=== PATIENT | female | born 1940 | race Caucasian/White ===

== ENCOUNTER 2018-08-11 10:11 | Day surgery (SDC) | payer MEDICARE, OTHER ==
[~2018-08-11 10:11] MED LIST: BRIMONIDINE 0.2% OPHTH DROPS 5 ML ONE; BSS/LIDOCAINE/EPINEPHRINE 1 ML SYRINGE ONE; CYCLOPENTOLATE 1% OPHTH DROPS 2 ML ONE; KETOROLAC 0.45% OPHTH DROPS ONE; PHENYLEPHRINE 2.5% OPHTH 2 ML DROPS ONE; PROPARACAINE 0.5% OPHTH DROPS 15 ML ONE; TIMOLOL 0.5% OPHTH DROPS ONE; TRIAMCIN/MOXIFLOX OPHTHALMIC 0.6 ML VIAL IO ONE; VANCOMYCIN OPHTHALMI 8MG/0.8ML 8 MG/0.8 ML SYRINGE IO ONE
[2018-08-11] MEDS ORDERED: CYCLOPENTOLATE 1% OPHTH DROPS 2 ML RIGHTEYE ONE (10:50)
[2018-08-11] MEDS ORDERED: KETOROLAC 0.45% OPHTH DROPS RIGHTEYE ONE (10:50)
[2018-08-11] MEDS ORDERED: PROPARACAINE 0.5% OPHTH DROPS 15 ML RIGHTEYE ONE (10:50)
[2018-08-11] MEDS ORDERED: PHENYLEPHRINE 2.5% OPHTH 2 ML DROPS RIGHTEYE ONE (10:50)
[2018-08-11] MEDS ORDERED: LACTATED RINGERS 500 ML IV ONE (10:55)
--- NOTE | 2018-08-11 11:24 | ANESTHESIA ---
Pre-Anesthesia VS, & Labs - Diagnosis Right senile combined cataract - Procedure Right phaco with IOL implant Vital Signs: Temp Pulse Resp BP Pulse Ox 37 C 68 16 127/75 100 08/11/18 10:38 08/11/18 10:38 08/11/18 10:38 08/11/18 10:38 08/11/18 10:38 Height 5 ft 3 in Weight (kg) 75 kg Body Mass Index 26.4 - NPO Other (Water at 0800) - Is Patient ?: No Home Medications and Allergies Home Medications: Ambulatory Orders Atorvastatin [Lipitor] 10 mg PO DAILY 08/10/18 Omeprazole [PriLOSEC] 20 mg PO DAILY 10/19/12 Atorvastatin [Lipitor] 10 mg PO DAILY 08/10/18 Allergies/Adverse Reactions: Allergies Allergy/AdvReac Type Severity Reaction Status Date / Time No Known Drug Allergies Allergy Unverified 09/25/12 10:20 Anes History & Medical History - Anesthetic History Anesthesia Complications: reports: No previous complications Family history of Anesthesia Complications: Denies Family history of Malignant Hyperthermia: Denies - Medical History Cardiovascular: reports: None, High cholesterol Pulmonary: reports: None Gastrointestinal: reports: GI bleed Urinary: reports: None Neuro: reports: None Musculoskeletal: reports: Osteoarthritis, Chronic back pain Endocrine/Autoimmune: reports: None Blood Disorders: reports: None Skin: reports: None Smoking Status: Never smoker Psychosocial: reports: No issues indicated - Surgical History General: EGD Eyes Ears Nose Throat (EENT): Tonsil/Adenoidectomy Exam General: Alert, Oriented x3, Cooperative Dental: WNL Mouth Opening: Greater than 4 Fingerbreadths Neck Mobility: Normal Mallampati classification: II Respiratory: Lungs clear Cardiovascular: Regular rate Plan Anesthesia Type: MAC Consent for Procedure(s) Verified and Reviewed: Yes Code Status: Attempt Resuscitation ASA classification: 2-Mild systemic disease Is this case an emergency?: No
[2018-08-11] MEDS ORDERED: VANCOMYCIN OPHTHALMI 8MG/0.8ML 8 MG/0.8 ML SYRINGE IO ONE (11:46)
[2018-08-11] MEDS ORDERED: BRIMONIDINE 0.2% OPHTH DROPS 5 ML OPTH ONE (11:47)
[2018-08-11] MEDS ORDERED: TRIAMCIN/MOXIFLOX OPHTHALMIC 0.6 ML VIAL IO ONE (11:47)
[2018-08-11] MEDS ORDERED: BSS/LIDOCAINE/EPINEPHRINE 1 ML SYRINGE IO ONE (11:48)
[2018-08-11] MEDS ORDERED: EPINEPHrine 1 MG/ML AMP IVP ONE (11:48)
[2018-08-11] MEDS ORDERED: TIMOLOL 0.5% OPHTH DROPS OPTH ONE (11:48)
[2018-08-11] MEDS ORDERED: CHONDR SULF/HYALURONATE SYRINGE IO ONE (11:48)
[2018-08-11] MEDS ORDERED: MIDAZOLAM 2 MG/2 ML VIAL IVP ONE (11:50)
--- NOTE | 2018-08-11 12:09 | OPERATIVE REPORT ---
DATE OF SERVICE: 08/11/2018 Physician: Carlos Pandya MD PREOPERATIVE DIAGNOSIS: Visually significant cataract, right eye. This was her first cataract surge ry. POSTOPERATIVE DIAGNOSIS: Visually significant cataract, right eye. This was her first cataract surg radha. NAME OF PROCEDURE: Phacoemulsification with posterior chamber intraocular lens implant, right eye. SURGEON: Carlos Pandya MD ANESTHESIA: Monitored anesthesia care. COMPLICATIONS: None. OPERATIVE INDICATIONS: This is a 78-year-old woman with progressive vision loss in the right eye due to 2+ nuclear sclerotic, 1 to 2+ cortical, trace posterior subcapsular and vacuolar cataract. Best corrected visual acuity was 20/30, with glare to hand motion vision in the right eye. Indications fo r surgery are overall decrease in vision, difficulty driving in low light or at night, difficulty dri ving at night because of headlights from other vehicles, and difficulty with glare or bright lights i n any situation. She was consented at length concerning risks and benefits of cataract surgery, afte r which she expressed a desire to proceed with surgery. OPERATIVE PROCEDURE: The patient was taken into OR 3, and placed under monitored anesthesia care. A surgical timeout was conducted confirming correct patient, correct procedure, and correct surgical s ite. She was given topical anesthesia, and then prepped and draped in the usual sterile fashion. Th e eye was entered at the 12 and 9 o'clock positions. Intracameral Shugarcaine was injected into the anterior chamber, followed by Viscoat. A continuous-tear curvilinear capsulorrhexis was performed. The nucleus was hydrodissected and phacoemulsified. The cortex was evacuated using automated infusio n and aspiration. Provisc was injected in the capsular bag, and a 19.5 diopter intraocular lens inse rted in the bag. Approximately 0.8 mL of a mixture of triamcinolone, moxifloxacin and vancomycin was injected subconjunctivally in the superior quadrant for infection and inflammation prophylaxis. I a nd A was used to evacuate the viscoelastic materials. The eye was inflated to physiologic pressure w ith balanced salt solution, and found to be watertight. The patient was taken from the operating susannah m in good condition and given postoperative instructions. TD: 08/11/2018 12:03
[2018-08-11 12:13] VITALS: BP 117/59
== END 2018-08-11 10:12 | disposition home or self-care (01) ==
LOC: SDS 10:11
PROVIDERS: ATTEND Ophthalmology
PROC: 08RJ3JZ Replacement of Right Lens with Synthetic Substitute, Percutaneous Approach (ICD-10-PCS; principal; 2018-08-11 11:30)
DX: H25.811 Combined forms of age-related cataract, right eye (principal); E78.00 Pure hypercholesterolemia, unspecified; M19.90 Unspecified osteoarthritis, unspecified site; H91.90 Unspecified hearing loss, unspecified ear; Z87.19 Personal history of other diseases of the digestive system
CPT/HCPCS: 66984; A9270; J3490; V2632

== ENCOUNTER 2018-09-08 08:25 | Day surgery (SDC) | payer MEDICARE, OTHER ==
[2018-09-08] MEDS ORDERED: PHENYLEPHRINE 2.5% OPHTH 2 ML DROPS LEFTEYE ONE (09:20)
[2018-09-08] MEDS ORDERED: PROPARACAINE 0.5% OPHTH DROPS 15 ML LEFTEYE ONE ×2 (09:20→10:34)
[2018-09-08] MEDS ORDERED: CYCLOPENTOLATE 1% OPHTH DROPS 2 ML LEFTEYE ONE (09:20)
[2018-09-08] MEDS ORDERED: KETOROLAC 0.45% OPHTH DROPS LEFTEYE ONE (09:20)
[2018-09-08] MEDS ORDERED: LACTATED RINGERS 500 ML IV ONE (09:27)
--- NOTE | 2018-09-08 09:36 | ANESTHESIA ---
Pre-Anesthesia VS, & Labs - Diagnosis Left eye senile combined cataract - Procedure Left eye cataract extraction with IOL implant Vital Signs: Temp Pulse Resp BP Pulse Ox 36.5 C 64 20 126/62 100 09/08/18 09:07 09/08/18 09:07 09/08/18 09:07 09/08/18 09:07 09/08/18 09:07 Height 5 ft 3 in Weight (kg) 74.2 kg Body Mass Index 26.4 - NPO >8 hours - Is Patient ?: No Home Medications and Allergies Omeprazole [PriLOSEC] 20 mg PO DAILY 10/19/12 Atorvastatin [Lipitor] 10 mg PO DAILY 08/10/18 Allergies/Adverse Reactions: Allergies Allergy/AdvReac Type Severity Reaction Status Date / Time No Known Drug Allergies Allergy Unverified 09/25/12 10:20 Anes History & Medical History - Anesthetic History Anesthesia Complications: reports: No previous complications - Medical History Cardiovascular: reports: High cholesterol Pulmonary: reports: None Gastrointestinal: reports: GI bleed Urinary: reports: None Neuro: reports: None Musculoskeletal: reports: Osteoarthritis Endocrine/Autoimmune: reports: None Blood Disorders: reports: None Skin: reports: None Smoking Status: Former smoker (Quit 18 years ago) Psychosocial: reports: Alcohol (2-3 drinks 2-3 times per week) - Surgical History General: EGD Eyes Ears Nose Throat (EENT): Tonsil/Adenoidectomy Exam General: Alert, Oriented x3, Cooperative, No acute distress Dental: WNL Mouth Openin Fingerbreadth Mallampati classification: II Thyromental Distance: 4-6 cm Respiratory: Lungs clear, Normal breath sounds, No respiratory distress, No accessory muscle use Cardiovascular: Regular rate, Normal S1, Normal S2, No murmurs Mental/Cognitive Status: Alert/Oriented X3, Normal for patient Plan Anesthesia Type: MAC Consent for Procedure(s) Verified and Reviewed: Yes Code Status: Attempt Resuscitation ASA classification: 2-Mild systemic disease Is this case an emergency?: No
[2018-09-08] MEDS ORDERED: MIDAZOLAM 2 MG/2 ML VIAL IVP ONE (10:30)
[2018-09-08] MEDS ORDERED: BRIMONIDINE 0.2% OPHTH DROPS 5 ML OPTH ONE (10:32)
[2018-09-08] MEDS ORDERED: EPINEPHrine 1 MG/ML AMP IVP ONE (10:32)
[2018-09-08] MEDS ORDERED: BSS/LIDOCAINE/EPINEPHRINE 1 ML SYRINGE IO ONE (10:33)
[2018-09-08] MEDS ORDERED: TIMOLOL 0.5% OPHTH DROPS OPTH ONE (10:33)
[2018-09-08] MEDS ORDERED: CHONDR SULF/HYALURONATE SYRINGE IO ONE (10:33)
[2018-09-08] MEDS ORDERED: VANCOMYCIN OPHTHALMI 8MG/0.8ML 8 MG/0.8 ML SYRINGE IO ONE (10:34)
[2018-09-08] MEDS ORDERED: TRIAMCIN/MOXIFLOX OPHTHALMIC 0.6 ML VIAL IO ONE (10:35)
[2018-09-08 10:47] VITALS: BP 107/53
--- NOTE | 2018-09-08 11:15 | OPERATIVE REPORT ---
DATE OF SERVICE: 09/08/2018 Physician: Carlos Pandya MD PREOPERATIVE DIAGNOSIS: Visually significant cataract, left eye. Cataract surgery was performed on the right eye on 08/11/2018. POSTOPERATIVE DIAGNOSIS: Visually significant cataract, left eye. Cataract surgery was performed on the right eye on 08/11/2018. PROCEDURE: Phacoemulsification with posterior chamber intraocular lens implant, left eye. SURGEON: Carlos Pandya MD ANESTHESIA: Monitored anesthesia care. COMPLICATIONS: None. OPERATIVE INDICATIONS: This is a 78-year-old woman with progressive vision loss in left eye due to 2 + nuclear sclerotic, 1-2+ cortical and vacuolar cataract. Best corrected visual acuity was 20/40, wi th glare to hand motion in the left eye. Indications for surgery were difficulty seeing words on a [employer]idget[employer] screen, difficulty reading, difficulty seeing words, closed captions or game scores on TV, di fficulty seeing street signs, difficulty driving in low light or at night, difficulty driving at nigh t because of headlights from other vehicles, and difficulty with glare or bright lights in any situat ion. She was consented at length concerning risks and benefits of cataract surgery, after which she expressed his desire to proceed with surgery. OPERATIVE PROCEDURE: The patient was taken to OR #3 and placed under monitored anesthesia care. A s urgical timeout was conducted confirming the correct patient, correct procedure, and correct surgical site. She was given topical anesthesia, and then prepped and draped in usual sterile fashion. The eye was entered at the 6 and 3 o'clock positions. Intracameral Shugarcaine was injected into the ant erior chamber, followed by Viscoat. A continuous-tear curvilinear capsulorrhexis was performed. The nucleus was hydrodissected and phacoemulsified, and the cortex evacuated using automated infusion an d aspiration. Provisc was injected in the capsular bag, and a 21.0 diopter intraocular lens inserted in the bag. Approximately 0.8 mL of a mixture of triamcinolone, moxifloxacin and vancomycin was inj ected subconjunctivally in the superior quadrant for infection and inflammation prophylaxis. I and A was used to evacuate the viscoelastic materials. The eye was inflated to physiologic pressure with balanced salt solution and found to be watertight. Patient was taken from the operating room in good condition and given postoperative instructions. TD: 09/08/2018 11:05
== END 2018-09-08 08:26 | disposition home or self-care (01) ==
LOC: SDS 08:25
PROVIDERS: ATTEND Ophthalmology
PROC: 08RK3JZ Replacement of Left Lens with Synthetic Substitute, Percutaneous Approach (ICD-10-PCS; principal; 2018-09-08 10:00)
DX: H25.812 Combined forms of age-related cataract, left eye (principal); Z87.891 Personal history of nicotine dependence
CPT/HCPCS: 66984; A9270; J3490; V2632

== ENCOUNTER 2020-01-19 12:46 | Outpatient (CLI) | payer MEDICARE, OTHER ==
--- NOTE | 2020-01-19 15:55 | XRAY Report ---
PROCEDURE: Ankle 3 View BILAT INDICATIONS: BILATERAL FOOT AND ANKLE PAIN TECHNIQUE: 4 views of the right ankle and 3 views of the left ankle were obtained. COMPARISON: None. FINDINGS: Bones: No fractures or dislocations. Ankle mortise is normally aligned. No suspicious bony lesions . Small bilateral plantar calcaneal spurs are seen. Degenerative changes are partially imaged at the left first tarsometatarsal joint. Soft tissues: No tibiotalar joint effusion. Achilles tendon appears normal. IMPRESSION: No acute osseous abnormality. Small bilateral plantar calcaneal spurs. Reviewed by: Daren Herrera MD on 01/19/2020 3:53 PM PDT Approved by: Daren Herrera MD on 01/19/2020 3:53 PM PDT Station ID: [id number]
--- NOTE | 2020-01-19 15:58 | XRAY Report ---
PROCEDURE: Foot 3 View BILAT INDICATIONS: BILATERAL FOOT AND ANKLE PAIN TECHNIQUE: 3 views of each foot were acquired. COMPARISON: None. FINDINGS: Bones: Moderate bilateral hallux valgus is seen. Mild degenerative changes are seen at the first meta tarsophalangeal joints. Mild degenerative changes are seen at the left tarsometatarsal joints on late ral view. Small bilateral plantar calcaneal spurs are present. Bilateral os navicularis seen, slightl y larger on the left. Soft tissues: No tibiotalar joint effusion. Achilles tendon appears normal. IMPRESSION: 1. No acute osseous abnormality. 2. Moderate hallux valgus bilaterally. 3. Mild degenerative changes at the metatarsophalangeal joints are seen. Additional degenerative bayron nges are seen in the left-sided tarsometatarsal joints. 4. Small bilateral plantar calcaneal spurs. Reviewed by: Daren Herrera MD on 01/19/2020 3:57 PM PDT Approved by: Daren Herrera MD on 01/19/2020 3:57 PM PDT Station ID: [id number]
== END 2020-01-19 12:47 | disposition home or self-care (01) ==
LOC: DI.S 12:46
PROVIDERS: ATTEND Registered Nurse
DX: M19.072 Primary osteoarthritis, left ankle and foot (principal); M19.071 Primary osteoarthritis, right ankle and foot; M20.12 Hallux valgus (acquired), left foot; M20.11 Hallux valgus (acquired), right foot; M77.32 Calcaneal spur, left foot; M77.31 Calcaneal spur, right foot

== ENCOUNTER 2020-06-27 08:01 | Outpatient (CLI) | payer MEDICARE, OTHER ==
--- NOTE | 2020-06-27 12:23 | XRAY Report ---
PROCEDURE: Foot 3 View BILAT INDICATIONS: PAIN IN BOTH FEET TECHNIQUE: 3 views of each foot were acquired. COMPARISON: Bilateral feet radiographs 01/10/2023 FINDINGS: Bones: No acute fractures or dislocations. No suspicious bony lesions. Moderate hallux valgus is ag ain seen bilaterally. There is also bilateral pes planus. Flexion of the right second proximal interp halangeal joint may indicate a hammertoe deformity. Scattered degenerative changes are seen in the in terphalangeal joints. There is mild first metatarsophalangeal joint degenerative changes. Small plant ar calcaneal spurs are seen bilaterally. Degenerative changes are again seen in the second through fo urth tarsometatarsal joints and the left, and to a lesser extent on the right. Soft tissues: No suspicious soft tissue calcifications are seen. IMPRESSION: 1. No acute osseous abnormality. 2. Moderate hallux valgus bilaterally, slightly worse on the right. 3. Mild first metatarsophalangeal joint degenerative changes. 4. Bilateral pes planus. Reviewed by: Daren Herrera MD on 06/27/2020 12:22 PM PST Approved by: Daren Herrera MD on 06/27/2020 12:22 PM PST Station ID: [id number]
== END 2020-06-27 23:59 | disposition home or self-care (01) ==
LOC: DI.N 08:01
PROVIDERS: ATTEND Physician Assistant
DX: M19.072 Primary osteoarthritis, left ankle and foot (principal); M19.071 Primary osteoarthritis, right ankle and foot; M20.12 Hallux valgus (acquired), left foot; M20.11 Hallux valgus (acquired), right foot; M21.42 Flat foot [pes planus] (acquired), left foot; M21.41 Flat foot [pes planus] (acquired), right foot

== ENCOUNTER 2020-07-01 08:00 | Outpatient (CLI) | payer MEDICARE, OTHER ==
--- NOTE | 2020-07-01 13:22 | XRAY Report ---
PROCEDURE: Knee 4 View RT INDICATIONS: R KNEE PX TECHNIQUE: 4 views of the right knee(s) were acquired. COMPARISON: 02/23/2018 knee x-rays FINDINGS: Bones: No fractures or dislocations. No suspicious bony lesions. Moderate tricompartment periartic ular osteophyte formation. Severe lateral compartment narrowing. Soft tissues: No joint effusion. No suspicious soft tissue calcifications. IMPRESSION: 1. Osteoarthritis with lateral compartment narrowing. Reviewed by: Bob Stevenson MD on 07/01/2020 1:20 PM PST Approved by: Bob Stevenson MD on 07/01/2020 1:20 PM PST Station ID: [id number]
== END 2020-07-01 23:59 | disposition home or self-care (01) ==
LOC: DI.N 08:00
PROVIDERS: ATTEND Physician Assistant
DX: M17.11 Unilateral primary osteoarthritis, right knee (principal)

== ENCOUNTER 2020-12-31 17:00 | Outpatient (CLI) | payer MEDICARE, OTHER | END 2020-12-31 17:01 | disposition home or self-care (01) | LOC: COV 17:00 | PROVIDERS: ATTEND Registered Nurse | DX: Z01.812 Encounter for preprocedural laboratory examination (principal); Z20.822 Contact with and (suspected) exposure to COVID-19 ==

== ENCOUNTER 2021-12-15 12:47 | Outpatient (CLI) | payer MEDICARE, OTHER ==
--- NOTE | 2021-12-15 17:30 | DEXA Report ---
PROCEDURE: Dexa Spine and/or Hip INDICATIONS: OSTEOPOROSIS TECHNIQUE: Dual energy x-ray absorptiometry (DXA) was performed on a [employer] System. Regions measur ed are the AP Spine, femoral neck, and if needed forearm. COMPARISON: None. FINDINGS: Lumbar Spine: Bone Mineral Density 1.108 g/cm/cm,T score -0.8, normal Left total Hip: Bone Mineral Density 1.016 g/cm/cm,T score 0.1, normal Left Femoral Neck: Bone Mineral Density 0.980 g/cm/cm, T score -0.4, normal (T score greater or equal to -1.0: NORMAL) (T score from -1.1 to -2.4: OSTEOPENIA) (T score less than or equal to -2.5 to: OSTEOPOROSIS) Impression: Normal bone mineral density. Patients with diagnosis of osteoporosis or osteopenia should have regular bone mineral density assess ment. For those eligible for Medicare, routine testing is allowed once every 2 years. Testing frequ ency can be increased for patients who have rapidly progressing disease or for those who are receivin g medical therapy to restore bone mass. Reviewed by: Adan Sanford on 12/15/2021 5:28 PM PDT Approved by: Adan Sanford on 12/15/2021 5:28 PM PDT Station ID: [id number]
== END 2021-12-15 12:48 | disposition home or self-care (01) ==
LOC: DI 12:47
PROVIDERS: ATTEND Registered Nurse
DX: M81.0 Age-related osteoporosis without current pathological fracture (principal)

== ENCOUNTER 2021-12-22 08:00 | Outpatient (CLI) | payer MEDICARE, OTHER ==
--- NOTE | 2021-12-22 11:16 | XRAY Report ---
PROCEDURE: Knee 4 View BILAT INDICATIONS: BILATERAL KNEE PAIN TECHNIQUE: 4 views of the bilateral knee(s) were acquired. COMPARISON: None. FINDINGS: Bones: No fractures or dislocations. No suspicious bony lesions. Moderate to severe tricompartmenta l osteoarthritis in right knee is seen most prominent in lateral femoral tibial compartment. Mild tri compartmental osteoarthritis in left knee is also noted more prominent in medial femoral tibial nain rtment. There is no patella subluxation. Soft tissues: Moderate right suprapatellar joint effusion is seen, no significant left-sided joint ef fusion. No suspicious soft tissue calcifications. IMPRESSION: 1. Moderate to severe tricompartmental osteoarthritis in the right knee more prominent in lateral fem oral tibial compartment. Moderate right suprapatellar joint effusion. 2. Mild tricompartment osteoarthritis in left knee more prominent in medial femoral tibial compartmen t. Reviewed by: Raymond Henderson MD on 12/22/2021 10:15 AM [facility] Approved by: Raymond Henderson MD on 12/22/2021 10:15 AM [facility] Station ID: [id number]
== END 2021-12-22 23:59 | disposition home or self-care (01) ==
LOC: DI.S 08:00
PROVIDERS: ATTEND Physician Assistant
DX: M17.0 Bilateral primary osteoarthritis of knee (principal)

== ENCOUNTER 2022-05-15 08:58 | Outpatient (CLI) | payer MEDICARE, OTHER ==
--- NOTE | 2022-05-15 09:31 | CT Report ---
PROCEDURE: HEAD WO INDICATIONS: CLOSED HEAD INJURY TECHNIQUE: Noncontrast 4.5 mm thick angled axial sections acquired from the foramen magnum to the vertex. For r adiation dose reduction, the following was used: automated exposure control, adjustment of mA and/or kV according to patient size. COMPARISON: None. FINDINGS: Image quality: Excellent. CSF spaces: Basal cisterns are patent. No extra-axial fluid collections. Ventricles are symmetrica l in size and shape. There is a 2 cm arachnoid cyst in the posterior fossa near midline. Brain: No midline shift. No intracranial masses or hemorrhage. There is mild cerebral volume loss. Mild periventricular matter chronic small vessel ischemic changes are present. Skull and face: Calvarium and visualized facial bones are intact, without suspicious lesions. Sinuses: There is an air-fluid level in the right maxillary sinus. The Mastoids are clear. IMPRESSION: 1. No acute intracranial abnormality. 2. Cerebral volume loss and periventricular white matter chronic small vessel ischemic changes. 3. A 2 cm arachnoid cyst in the posterior fossa. 4. An air-fluid level in the right maxillary sinus. Reviewed by: Toan Valenzuela MD on 05/15/2022 9:30 AM [facility] Approved by: Toan Valenzuela MD on 05/15/2022 9:30 AM PST Station ID: [id number]
== END 2022-05-15 08:59 | disposition home or self-care (01) ==
LOC: DI 08:58
PROVIDERS: ATTEND Registered Nurse
DX: S09.90XD Unspecified injury of head, subsequent encounter (principal)

== ENCOUNTER 2022-09-17 08:00 | Outpatient (CLI) | payer MEDICARE, OTHER ==
--- NOTE | 2022-09-17 10:38 | XRAY Report ---
PROCEDURE: Knee 4 View BILAT INDICATIONS: BILAT KNEE PAIN TECHNIQUE: 4 views of the right and left knee(s) were acquired. COMPARISON: None. FINDINGS: Bones: No acute fractures or dislocations. No suspicious bony lesions. Curvilinear calcification ab out the right knee medial femoral condyle could indicate sequela of prior MCL injury. Right knee: Moderate multiple osteophytes, definite narrowing of joint space, small pseudocystic area s with sclerotic juarez and possible deformity of bone contour. These changes affect the lateral tibio femoral compartment. Mild joint space narrowing and spurring also present at the medial and patellofe moral compartment. Left knee: Definite osteophytes and possible narrowing of joint space. This is tricompartmental. Soft tissues: Possible small right knee joint effusion. No suspicious soft tissue calcifications . IMPRESSION: No acute bony abnormality. Degenerative changes of both knees as above. Right knee: Kellgren-Frankie scale of osteoarthritis: Grade 3: moderate osteoarthritis. Left knee: Kellgren-Frankie scale of osteoarthritis: Grade 1-2: mild osteoarthritis. Reviewed by: Daren Rico MD on 09/17/2022 10:37 AM PDT Approved by: Daren Rico MD on 09/17/2022 10:37 AM PDT Station ID: [id number]
== END 2022-09-17 23:59 | disposition home or self-care (01) ==
LOC: DI.WOS 08:00
PROVIDERS: ATTEND Orthopaedic Surgery
DX: M17.0 Bilateral primary osteoarthritis of knee (principal)

== ENCOUNTER 2022-12-16 06:18 | Day surgery (SDC) | payer MEDICARE, OTHER ==
[2022-12-16] MEDS ORDERED: ceFAZolin 2 GM VIAL ONE (06:43)
[2022-12-16] MEDS ORDERED: ACETAMINOPHEN 500 MG TABLET PO ONE (06:43)
[2022-12-16] MEDS ORDERED: CELECOXIB 100 MG CAPSULE PO ONE (06:43)
[2022-12-16] MEDS ORDERED: LACTATED RINGERS 1,000 ML IV ONE (06:44)
[2022-12-16] MEDS ORDERED: VANCOMYCIN 1 GM VIAL ONE (06:56)
[2022-12-16] MEDS ORDERED: BUPIVACAINE 0.25% PF 30 ML VIAL ONE ×2 (06:56→09:23)
[2022-12-16] MEDS ORDERED: KETOROLAC 30 MG/ML VIAL ONE (06:56)
[2022-12-16] MEDS ORDERED: dexAMETHasone 4 MG TABLET PO ONE (07:00)
[2022-12-16] MEDS ORDERED: SUCCINYLCHOLINE 200 MG/10 ML VIAL ONE (07:01)
[2022-12-16] MEDS ORDERED: PHENYLEPHRINE 10 MG/ML VIAL ONE (08:05)
[2022-12-16] MEDS ORDERED: TRANEXAMIC ACID 1,000 MG/10 ML VIAL ONE (08:05)
[2022-12-16] MEDS ORDERED: ONDANSETRON 4 MG/2 ML VIAL ONE (08:05)
[2022-12-16] MEDS ORDERED: ePHEDrine 50 MG/ML VIAL IVP ONE (08:05)
[2022-12-16] MEDS ORDERED: DEXAMETHASONE 4 MG/ML VIAL ONE (08:05)
[2022-12-16] MEDS ORDERED: VANCOMYCIN 1 GM VIAL MC ONE (08:20)
[2022-12-16] MEDS ORDERED: HYDROGEN PEROXIDE 3% 473 ML BOTTLE TOP ONE (08:21)
[2022-12-16] MEDS ORDERED: HYDROmorphone 0.5 MG/0.5 ML SYRINGE IVP PRN (08:52)
[2022-12-16] MEDS ORDERED: ATROPINE ABBOJECT 1 MG/10 ML SYRINGE IVP PRN (08:52)
[2022-12-16] MEDS ORDERED: ePHEDrine 50 MG/ML VIAL IVP PRN (08:52)
[2022-12-16] MEDS ORDERED: NALOXONE 0.4 MG/ML VIAL IVP PRN (08:52)
[2022-12-16] MEDS ORDERED: ONDANSETRON 4 MG/2 ML VIAL IVP PRN ×2 (08:52→10:31)
[2022-12-16] MEDS ORDERED: fentaNYL 100 MCG/2 ML VIAL IVP PRN (08:52)
--- NOTE | 2022-12-16 08:52 | ANESTHESIA ---
Pre-Anesthesia VS, & Labs - Diagnosis R knee osteoarthritis - Procedure R TKA Vital Signs: Temp Pulse Resp BP Pulse Ox O2 Flow Rate 36.2 C L 88 20 101/61 100 12/16/22 06:30 12/16/22 06:30 12/16/22 06:30 12/16/22 06:30 12/16/22 06:30 Height: 5 ft 1 in Weight (kg): 69 kg Body Mass Index: 28.7 BMI Classification: Overweight - NPO >8 hours - Is Patient ?: No - Lab Results Lab results reviewed: Yes Home Medications and Allergies Home Medications: Ambulatory Orders DULoxetine [Cymbalta] 40 mg PO DAILY 12/09/22 EPINEPHrine [Epinephrine] 1 each SUBQ ONCE PRN 12/10/22 Omeprazole [PriLOSEC] 20 mg PO DAILY 10/19/12 Atorvastatin [Lipitor] 10 mg PO QPM 08/10/18 DULoxetine [Cymbalta] 40 mg PO DAILY 12/09/22 EPINEPHrine [Epinephrine] 1 each SUBQ ONCE PRN 12/10/22 Allergies/Adverse Reactions: Allergies Allergy/AdvReac Type Severity Reaction Status Date / Time bee venom protein (honey bee) Allergy Anaphylaxis Verified 12/16/22 06:48 Anes History & Medical History - Anesthetic History Anesthesia Complications: reports: No previous complications Family history of Anesthesia Complications: Denies Family history of Malignant Hyperthermia: Denies - Medical History Cardiovascular: reports: High cholesterol Pulmonary: reports: None Gastrointestinal: reports: GI bleed, Ulcers Urinary: reports: None Neuro: reports: None Musculoskeletal: reports: Osteoarthritis Endocrine/Autoimmune: reports: None Blood Disorders: reports: None Skin: reports: Other Smoking Status: Former smoker (Quit 18 years ago) - Surgical History General: reports: Colonoscopy, EGD Eyes Ears Nose Throat (EENT): reports: Cataracts, Tonsil/Adenoidectomy Exam General: Alert, Oriented x3, Cooperative Dental: WNL Mouth Openin Fingerbreadth Neck Mobility: Normal Mallampati classification: II Thyromental Distance: 4-6 cm Respiratory: Lungs clear Cardiovascular: Regular rate Plan Anesthesia Type: Spinal Consent for Procedure(s) Verified and Reviewed: Yes Code Status: Attempt Resuscitation ASA classification: 2-Mild systemic disease Is this case an emergency?: No
[2022-12-16] MEDS ORDERED: PROPOFOL 200 MG/20 ML VIAL IVP ONE ×2 (08:53→10:04)
[2022-12-16] MEDS ORDERED: LACTATED RINGERS 1,000 ML IV SCH (09:00)
[2022-12-16] MEDS ORDERED: BUPIVACAINE 0.25% PF 30 ML VIAL SUBQ ONE (09:44)
[2022-12-16] MEDS ORDERED: KETOROLAC 30 MG/ML VIAL IVP ONE (09:45)
--- NOTE | 2022-12-16 10:07 | OPERATIVE REPORT ---
Operative Report - General Procedure Date: 12/16/22 Planned Procedure: Right total knee replacement Pre-Op Diagnosis: Valgus osteoarthritis right knee Procedure Performed: Right total knee replacement: Aguilar [employer] Nephew journey 2 cemented total knee system: #4 Oxinium journey 2 cruciate sparing femoral component, #3 primary tibial baseplate, 9 mm medial dished tibial bearing, 26 mm biconvex polyethylene patellar component Post Op Diagnosis: Same as preoperative diagnosis - Procedure Note Primary Surgeon: Carlyle Tapia MD Secondary Surgeon: Belgica Jeffries PAC Anesthesia Provider: Carlos Villa CRNA Anesthesia Technique: Spinal Estimated Blood Loss (mL): 100 Indications: This is a 82-year-old woman with longstanding symptoms of right knee osteoarthritis that is progressively worsened with time, and restricting activities including activities of daily living and quality of life activities. She has had conservative treatment attempted over the past years but not responding in the past year or so. She has a valgus deformity of her right kne e, lateral joint line tenderness, good motion, stability. She did have some lateral patellar retinacular tightness. Her x-rays showed a valgus pattern of osteoarthritis with complete loss of lateral compartment joint space and some bone loss with a relatively intact medial compartment. She signed informed consent agreeing to the procedure, attended joint camp and had preoperative medical evaluation Findings: There was typical valgus pattern of wear with complete loss of the cartilage to lateral compartment, eburnated bone surfaces to lateral compartment, absence of lateral meniscus, relatively intact medial compartment, loss of articular cartilage full-thickness to patella with osteophytes, posterior cruciate ligament intact as well as anterior cruciate although somewhat friable Complications: None - Other Other Information/Narrative: The patient was brought to the operating room and was placed in a supine position. A pneumatic tourniquet was applied to the proximal right thigh over cast padding. This was a conical shaped Mathew thigh tourniquet that was sterile. A Foot azul was applied to the bed to facilitate knee flexion during surgery. The right lower extremity was prepped and draped in a sterile manner in the usual fashion.. A timeout procedure was performed by the entire operating room team and all were in agreement. A midline longitudinal incision was made with the knee in flexion. A medial parapatellar arthrotomy was made. The anterior horn of medial and lateral menisci were released and part of patellar fat pad was excised. The knee was flexed and the patella was dislocated laterally. A drill hole was made in the intramedullary notch with a 9.5 mm drill. Osteophytes about the proximal tibia and femur had been removed with a rongeur. The distal femoral cutting guide was aligned parallel to the posterior condyles. The intramedullary eliot and guide was advanced and the distal femoral guide was stabilized with half pins. The distal 5 degrees valgus cut was made through the distal femoral guide, Primary cut. Next the extra medullary tibial guide was assembled and applied and aligned to the mechanical axis in both sagittal and coronal planes. Tibial referencing was done to allow Removal of 7 mm bone cut referenced off the intact medial tibial condyle. The tibial guide was stabilized with half pins. Retractors were placed medially and laterally to protect the collateral ligaments and a retractor was placed directly against the posterior bone to sublux the tibia anteriorly. A Sonatype precision 8 saw was used to make the tibial proximal cut. The tibial block was removed as a single piece and the menisci were removed as well. The extension gap was assessed with a extension block spacer using a 10 mm spacer and this was found to fit well as well as the 9 mm spacer block with the knee in 90 degrees of flexion. Next the femoral positioning guide was applied and aligned to the epicondylar axis and [place] line. This was secured in place with approximately 4 degrees of external rotation. The size of the femur at the anterior lateral trochlea was a #4. Drill holes were made in the 5 and 1 #4 cutting block was inserted and secured. The 5 cuts were made to the captured block using oscillating saw. The flexion gap was assessed with the 10 mm spacer and was found to fit well. The patella was then prepared. A 26 mm biconvex patellar reamer was used. The tibial trial #5 was then applied to the tibia and aligned to the mechanical axis. The drill and punch fin was utilized. Trial reduction was performed with the femoral and tibial components in place. Notch resection was then through the trial component. Pulsatile lavage was performed. A tourniquet was applied during the cementing process. The components were inserted sequentially: Tibia, femur and lastly patellar component. Drill holes were made in medial lateral femoral condyles to the trial. Excess cement was removed and the knee was placed in extension during the hardening. Dilute Betadine irrigation was performed. The knee had full range of motion, good patellar tracking. There was good stability of the knee in full extension mid flexion and 90 degrees of flexion. There was good alignment of the right knee. The tourniquet had been deflated and had been in place for 24 minutes. Hemostasis was achieved with electrocautery.Dilute Betadine irrigation was performed for least 3 minutes. Vancomycin powder 2 g were inserted in the arthrotomy prior to deep closure. The deep closure was performed with #2 Ethibond proximal and distal to the patella with the knee in 40 degrees of flexion. #1 stratofix suture was then used to close the arthrotomy incision. 2-0 Stratofix was used to close the subcutaneous tissue. 3-0 Monocryl was used to do a subcuticular skin closure. Dermabond was applied to the skin incision. After the Dermabond had hardened, a silver impregnated dressing was applied. She tolerated the procedure well and received 2 g of Ancef intravenously and 2 g of tranexamic acid. A surgical nurse practitioner was utilized during the procedure and was found to be necessary component to help with exposure, protection of vital structures and closure. .
[2022-12-16] MEDS ORDERED: LACTATED RINGERS 800 ML IV ONE (10:21)
[2022-12-16] MEDS ORDERED: DOCUSATE SODIUM 100 MG CAPSULE PO PRN (10:25)
[2022-12-16] MEDS ORDERED: SODIUM CHLORIDE FLUSH 0.9% 10 ML SYRINGE IVP PRN (10:25)
--- NOTE | 2022-12-16 11:07 | XRAY Report ---
PROCEDURE: Knee 2 View RT INDICATIONS: post operative imaging TECHNIQUE: 2 views of the right knee were acquired. COMPARISON: None. FINDINGS: Bones: Postsurgical changes are seen from right total knee arthroplasty with hardware components in expected positions. No acute osseous abnormality. Soft tissues: Postoperative changes are seen in the soft tissue surrounding the knee. IMPRESSION: Status post right total knee arthroplasty with expected postoperative findings. Reviewed by: Daren Herrera MD on 12/16/2022 11:06 AM PDT Approved by: Daren Herrera MD on 12/16/2022 11:06 AM PDT Station ID: [id number]
[2022-12-16] MEDS: NS W/20 MEQ KCL 1,000 ML IV SCH (11:48)
[2022-12-16] MEDS: ceFAZolin 2 GM in SODIUM CHLORIDE 0.9% MINIBAG 100 ML IV SCH ×2 (11:48→18:28)
[2022-12-16] MEDS: traMADol 50 MG TABLET PO SCH ×3 (12:54→23:09)
--- NOTE | 2022-12-16 13:29 | ANESTHESIA POST OP EVALUATION ---
Anesthesia Post Eval - Post Anesthesia Eval Vitals: Last Vital Signs Temp 36.4 C L 12/16/22 12:55 Pulse 81 12/16/22 12:55 Resp 16 12/16/22 12:55 BP 118/66 12/16/22 12:55 Pulse Ox 98 12/16/22 12:55 O2 Flow Rate CV Function Including HR & BP: Stable Pain Control: Satisfactory Nausea & Vomiting: Negative Mental Status: Baseline Respiratory Status: Airway Patent Hydration Status: Satisfactory Anesthesia Complications: None
[2022-12-16] MEDS: oxyCODONE 5 MG TABLET PO PRN ×2 (13:33→19:42)
[2022-12-16] MEDS: ACETAMINOPHEN 500 MG TABLET PO SCH ×2 (13:33→18:28)
[2022-12-16] MEDS: fentaNYL 100 MCG/2 ML VIAL IVP PRN ×2 (16:16→21:47)
[2022-12-16] MEDS: SODIUM CHLORIDE FLUSH 0.9% 10 ML SYRINGE IVP SCH (18:27)
[2022-12-16] MEDS: ethyl alcohoL 62% SWAB AMPULE NAS SCH (20:42)
[2022-12-16] MEDS: CELECOXIB 100 MG CAPSULE PO SCH (20:42)
[2022-12-17] MEDS: fentaNYL 100 MCG/2 ML VIAL IVP PRN (00:49)
[2022-12-17] MEDS: ACETAMINOPHEN 500 MG TABLET PO SCH ×2 (00:50→06:17)
[2022-12-17] MEDS: SODIUM CHLORIDE FLUSH 0.9% 10 ML SYRINGE IVP SCH ×2 (00:50→08:39)
[2022-12-17] MEDS: NS W/20 MEQ KCL 1,000 ML IV SCH (00:53)
[2022-12-17] MEDS: oxyCODONE 5 MG TABLET PO PRN ×2 (02:37→08:38)
[2022-12-17 04:52] LABS: BASOPHILS % (AUTO) 0.3 %; EOSINOPHILS # (AUTO) 0.1 10^3/uL (0.0-0.7); EOSINOPHILS % (AUTO) 0.9 %; HCT - HEMATOCRIT 26.8 % (37.0-47.0); HGB - HEMOGLOBIN 9.2 g/dL (12.0-16.0); LYMPHOCYTES # (AUTO) 0.8 10^3/uL (1.5-3.5); LYMPHOCYTES % (AUTO) 6.9 %; MEAN CORPUSCULAR HEMOGLOBIN 34.2 pg (27.0-31.0); MEAN CORPUSCULAR HGB CONC 34.3 g/dL (32.0-36.0); MEAN CORPUSCULAR VOLUME 99.6 fL (81.0-99.0); MEAN PLATELET VOLUME 9.2 fL (7.9-10.8); MONOCYTES % (AUTO) 8.2 %; NEUTROPHILS # (AUTO) 10.2 10^3/uL (1.5-6.6); NEUTROPHILS % (AUTO) 83.4 %; PLT - PLATELET COUNT 185 10^3/uL (130-450); RED BLOOD COUNT 2.69 10^6/uL (4.20-5.40); RED CELL DISTRIBUTION WIDTH 13.6 % (12.0-15.0); WHITE BLOOD COUNT 12.3 x10^3/uL (4.8-10.8)
[2022-12-17] MEDS: traMADol 50 MG TABLET PO SCH ×2 (05:04→10:59)
[2022-12-17] MEDS ORDERED: PANTOPRAZOLE 40 MG TABLET PO SCH (07:00)
[2022-12-17] MEDS: CELECOXIB 100 MG CAPSULE PO SCH (08:38)
[2022-12-17] MEDS: ethyl alcohoL 62% SWAB AMPULE NAS SCH (08:39)
[2022-12-17] MEDS ORDERED: DULoxetine 20 MG CAPSULE PO SCH (09:00)
[2022-12-17] MEDS ORDERED: ASPIRIN EC 81 MG TABLET PO SCH (09:00)
[2022-12-17 10:57] VITALS: BP 121/62
== END 2022-12-17 11:12 | disposition home or self-care (01) ==
LOC: SDS 06:18 → MS2 11:19 → SDS 12-17 11:12
PROVIDERS: ATTEND Orthopaedic Surgery
DX: M17.11 Unilateral primary osteoarthritis, right knee (principal); Z87.891 Personal history of nicotine dependence
CPT/HCPCS: 27447; 36415; 73560; 85025; 97110; 97161; 97166; A9270; J0330; J3370; J7120; J8540

== ENCOUNTER 2022-12-18 19:21 | Emergency (ER) | payer MEDICARE, OTHER ==
[2022-12-18 19:36] VITALS: BP 106/60
--- NOTE | 2022-12-18 20:14 | ED Physician Documentation ---
PD HPI LOWER EXT INJURY - Stated complaint Stated Complaint: POST OP COMP - Chief complaint Chief Complaint: Ext Problem - History obtained from History obtained from: Patient - Additional information Additional information: She had a right total knee replacement done here 2 days ago. She had some bleeding through her dressing and postop and the dressing was fortified with a thicker dressing but now has some bleeding through that as well. Pain is very well controlled. Next postop appointment is on Wednesday. PD PAST MEDICAL HISTORY - Past Medical History Cardiovascular: High cholesterol Respiratory: None Neuro: None Endocrine/Autoimmune: None GI: GI bleed, Ulcers : None HEENT: Chronic vision loss, Chronic hearing loss Psych: None Musculoskeletal: Osteoarthritis Derm: Other - Past Surgical History Past Surgical History: Yes General: Colonoscopy, EGD HEENT: Cataracts, Tonsil/Adenoidectomy - Present Medications Home Medications: Ambulatory Orders Medication Instructions Recorded Confirmed Omeprazole [PriLOSEC] 20 mg PO DAILY 10/19/12 12/16/22 Atorvastatin [Lipitor] 10 mg PO QPM 08/10/18 12/16/22 DULoxetine [Cymbalta] 40 mg PO DAILY 12/09/22 12/16/22 EPINEPHrine [Epinephrine] 1 each SUBQ ONCE PRN 12/10/22 12/10/22 - Allergies Allergies/Adverse Reactions: Allergies Allergy/AdvReac Type Severity Reaction Status Date / Time bee venom protein (honey bee) Allergy Anaphylaxis Verified 12/18/22 19:25 - Social History Does the pt smoke?: No Smoking Status: Former smoker (Quit 18 years ago) Does the pt drink ETOH?: No Does the pt have substance abuse?: No PD ED PE NORMAL - Vitals Vital signs reviewed: Yes - General General: Alert and oriented X 3, No acute distress - Extremities Extremities: Other (She is a bulky dressing on the right knee which was taken down. There was mostly old blood on it but not in insignificant amount. There was really no active bleeding. So I suspect the bleeding was already done. New dressing was placed.) - Neuro Neuro: Alert and oriented X 3, Normal speech Results - Vitals Vitals: Vital Signs - 24 hr 12/18/22 19:25 Temperature 36.8 C Heart Rate 105 H Respiratory 16 Rate Blood Pressure 106/60 O2 Saturation 98 Oxygen O2 Source Room air Departure - Departure Disposition: 01 Home, Self Care Clinical Impression: Postoperative wound hemorrhage Condition: Good Record reviewed to determine appropriate education?: Yes Comments: You were seen today for bleeding from your postoperative wound. It looks like it was mostly resolved already. Follow-up with Dr. Tapia on Wednesday as scheduled.
== END 2022-12-18 20:16 | disposition home or self-care (01) ==
LOC: ED 19:21
DX: L76.22 Postprocedural hemorrhage of skin and subcutaneous tissue following other procedure (principal); E78.00 Pure hypercholesterolemia, unspecified; Z79.899 Other long term (current) drug therapy; Z87.891 Personal history of nicotine dependence
CPT/HCPCS: 99281; 99282

== ENCOUNTER 2022-12-19 11:01 | Emergency (ER) | payer MEDICARE, OTHER ==
--- NOTE | 2022-12-19 12:18 | ED Physician Documentation ---
History of Present Illness - Stated complaint Stated Complaint: OPEN INCISIONS - Chief complaint Chief Complaint: Wound - Additonal information Additional information: 82-year-old female presents the emergency department for evaluation of her postoperative wound/dressing. She underwent a total knee replacement on December 16 here at [facility]. She was seen by my colleague yesterday for concerns of bleeding at the postoperative site. In review of his note he notes that there was mostly old blood on the dressing but not in insignificant amount. However there was no active bleeding noted. The dressing was replaced and she was discharged home. She states that since being seen yesterday she has had mostly pink drainage that she seems started to weep through onto the Christian bandage. She has been ambulatory without any increase in pain or fevers and feels otherwise well. Review of Systems Constitutional: denies: Fever Throat: reports: Reviewed and negative Cardiac: reports: Reviewed and negative Respiratory: reports: Reviewed and negative GI: reports: Reviewed and negative Skin: reports: Other (incision) Musculoskeletal: reports: Reviewed and negative PD PAST MEDICAL HISTORY - Past Medical History Cardiovascular: High cholesterol Respiratory: None Neuro: None Endocrine/Autoimmune: None GI: GI bleed, Ulcers : None HEENT: Chronic vision loss, Chronic hearing loss Psych: None Musculoskeletal: Osteoarthritis Derm: Other - Past Surgical History Past Surgical History: Yes General: Colonoscopy, EGD HEENT: Cataracts, Tonsil/Adenoidectomy - Present Medications Home Medications: Ambulatory Orders Medication Instructions Recorded Confirmed Omeprazole [PriLOSEC] 20 mg PO DAILY 10/19/12 12/16/22 Atorvastatin [Lipitor] 10 mg PO QPM 08/10/18 12/16/22 DULoxetine [Cymbalta] 40 mg PO DAILY 12/09/22 12/16/22 EPINEPHrine [Epinephrine] 1 each SUBQ ONCE PRN 12/10/22 12/10/22 - Allergies Allergies/Adverse Reactions: Allergies Allergy/AdvReac Type Severity Reaction Status Date / Time bee venom protein (honey bee) Allergy Anaphylaxis Verified 12/19/22 11:16 - Social History Does the pt smoke?: No Smoking Status: Former smoker (Quit 18 years ago) Does the pt drink ETOH?: No Does the pt have substance abuse?: No PD ED PE EXPANDED - Extremities Extremities: Right knee (Large bulky dressing on the right knee is noted to be damp with mostly serous sanguinous dressing. Exam of the incision itself is intact. When she flexes her knee there is serous drainage from the superior aspect of the wound. Moderate swelling/ecchymosis of the right knee lower leg; no calf pain) Results - Vitals Vitals: Vital Signs - 24 hr 12/19/22 11:13 Temperature 36.2 C L Heart Rate 96 Respiratory 20 Rate Blood Pressure 105/45 L O2 Saturation 99 Oxygen O2 Source Room air PD Medical Decision Making - ED course Complexity details: d/w patient ED course: Well-appearing 82-year-old female presents for evaluation of her postoperative dressing. She has moderate swelling of the knee and leg without posterior calf pain tenderness. Is not more than I would expect given her very recent postoperative state. The exam of the knee however shows an intact incision. With flexion of the knee some serous drainage exits from the superior portion of the wound. However no active bleeding was noted on the exam today. I did replace the dressing with nonstick bandage, Webril Curlex and an Christian bandage. Patient is scheduled to see orthopedist on Wednesday in follow-up. Given the lack of increased pain or fevers I have lower suspicion for infection. I am reassured by the serous sanguinous drainage but not active bleeding. Discharged home in stable condition with usual emergent return precautions discussed Departure - Departure Disposition: 01 Home, Self Care Clinical Impression: Visit for wound check Condition: Stable Record reviewed to determine appropriate education?: Yes Follow-Up: Carlyle Tapia MD [Provider Admit Priv/Credential] - Comments: Dennis as discussed at the bedside your incision looks good considering how recent you had surgery. The drainage seen on the dressing is something called serous sanguinous. It does not appear to be active bleeding. I think you can continue your usual care at home including your exercises. Continue to follow-up with Dr. Tapia on Wednesday. Reasons that I would want you to return to the emergency department would be the development of bright red blood or bleeding at your site, increased pain, any fevers.
[2022-12-19 12:40] VITALS: BP 110/56
== END 2022-12-19 12:32 | disposition home or self-care (01) ==
LOC: ED 11:01
DX: Z48.01 Encounter for change or removal of surgical wound dressing (principal); E78.00 Pure hypercholesterolemia, unspecified; Z79.899 Other long term (current) drug therapy; Z87.891 Personal history of nicotine dependence; Z96.651 Presence of right artificial knee joint
CPT/HCPCS: 99281; 99282

== ENCOUNTER 2023-01-26 08:00 | Outpatient (CLI) | payer MEDICARE, OTHER ==
--- NOTE | 2023-01-26 18:12 | XRAY Report ---
PROCEDURE: Knee 4 View RT INDICATIONS: RIGHT TOTAL KNEE TECHNIQUE: 4 views of the right knee(s) were acquired. COMPARISON: Right knee radiographs 12/16/2022 FINDINGS: Bones: Postsurgical changes from right knee arthroplasty. Possible abnormal periprosthetic lucency a djacent to the medial aspect of the tibial component. Soft tissues: Possible knee joint effusion. No suspicious soft tissue calcifications. IMPRESSION: Postsurgical changes from right knee arthroplasty. Possible abnormal periprosthetic lucency adjacent to the medial aspect of the tibial component, which can be seen in the setting of loosening or infect ion. Attention on follow-up recommended. Reviewed by: Daren Rico MD on 01/26/2023 6:10 PM PDT Approved by: Daren Rico MD on 01/26/2023 6:10 PM PDT Station ID: [id number]
== END 2023-01-26 23:59 | disposition home or self-care (01) ==
LOC: DI.WOS 08:00
PROVIDERS: ATTEND Orthopaedic Surgery
DX: Z96.651 Presence of right artificial knee joint (principal)

== ENCOUNTER 2023-07-02 12:23 | Outpatient (CLI) | payer MEDICARE, OTHER ==
--- NOTE | 2023-07-02 14:08 | XRAY Report ---
PROCEDURE: Shoulder 2+V RT INDICATIONS: ROTATOR CUFF ARTHROPATHY TECHNIQUE: 3 views of the shoulder were acquired. COMPARISON: None. FINDINGS: Bones: No fractures or dislocations. No suspicious bony lesions. Visualized ribs appear intact. Glenohumeral and acromioclavicular joint space narrowing with associated osteophytosis. Soft tissues: No suspicious soft tissue calcifications. The visualized lungs are within normal limi ts. IMPRESSION: No acute bony abnormality. Mild glenohumeral and moderate acromioclavicular osteoarthritis. Reviewed by: Joe Hoang MD on 07/02/2023 2:07 PM PST Approved by: Joe Hoang MD on 07/02/2023 2:07 PM PST Station ID: [id number]
== END 2023-07-02 12:24 | disposition home or self-care (01) ==
LOC: DI.S 12:23
PROVIDERS: ATTEND Registered Nurse
DX: M19.011 Primary osteoarthritis, right shoulder (principal)

== ENCOUNTER 2023-09-30 09:04 | Outpatient (CLI) | payer MEDICARE, OTHER ==
--- NOTE | 2023-09-30 13:46 | MRI Report ---
PROCEDURE: Shoulder RT WO INDICATIONS: R SHOULDER ROTATOR CUFF ARTHROPATHY TECHNIQUE: Noncontrast oblique coronal T2 fast spin echo with fat saturation, oblique sagittal T1 spin echo and T2 fast spin echo with fat saturation, axial T1 spin echo and T2 fast spin echo with fat saturation a nd 3-D gradient echo through the shoulder. COMPARISON: Right shoulder radiographs 07/02/2023. FINDINGS: Image quality: Excellent. Rotator cuff: Full-thickness tearing of the supraspinatus tendon and anterior fibers infraspinatus t endon from the distal insertions with approximately 2.3 cm of proximal tendon retraction. The tear me asures approximately 2.0 cm in anteroposterior dimension. Moderate infraspinatus tendinosis. Teres mi nor tendon is intact. There is mild subscapularis tendinosis. There is mild atrophy of the supraspina tus muscle. The remaining rotator cuff muscles are normal in bulk. Bones and bursae: No acute trabecular bone injury or fracture. Chronic traction cystic changes are se en in the posterosuperior humeral head and the greater and lesser tuberosities of the rotator cuff te ndon insertions. There is partial-thickness cartilage irregularity in the glenohumeral joint with mil d degenerative spurring in the glenoid rim. Moderate degenerative changes are seen at the acromioclav icular joint with subchondral cystic changes and edema and marginal osteophyte formation. Glenohumera l joint fluid communicates with the subacromial/subdeltoid bursa. Capsule and soft tissues: There is diffuse labral degeneration and suspected chronic degenerative tea ring of the superior labrum. Mild proximal biceps tendinosis. There is partial effacement of the fat in the rotator interval. Glenohumeral ligaments are intact. IMPRESSION: 1.Full-thickness tearing of the supraspinatus tendon and the anterior fibers infraspinatus tendon lynette suring 2 cm in anteroposterior dimension with approximately 2.3 cm of proximal tendon retraction. Mod erate infraspinatus tendinosis. Mild supraspinatus muscle atrophy. 2.Mild subscapularis tendinosis. 3.Mild tendinosis of the proximal biceps long head tendon. 4.Mild glenohumeral osteoarthrosis. Diffuse labral degeneration. 5.Moderate acromioclavicular joint osteoarthrosis. 6.Glenohumeral joint fluid communicates with the subacromial/subdeltoid bursa. Reviewed by: Daren Herrera MD on 09/30/2023 1:45 PM PDT Approved by: Daren Herrera MD on 09/30/2023 1:45 PM PDT Station ID: [id number]
== END 2023-09-30 09:05 | disposition home or self-care (01) ==
LOC: DI 09:04
PROVIDERS: ATTEND Registered Nurse
DX: M75.121 Complete rotator cuff tear or rupture of right shoulder, not specified as traumatic (principal); M67.921 Unspecified disorder of synovium and tendon, right upper arm; M19.011 Primary osteoarthritis, right shoulder; M25.411 Effusion, right shoulder

== ENCOUNTER 2023-10-02 12:14 | Outpatient (CLI) | payer MEDICARE, OTHER | END 2023-10-02 23:59 | disposition critical access hospital (66) | LOC: EMS 12:14 | DX: R53.1 Weakness (principal); M25.511 Pain in right shoulder; W18.2XXA Fall in (into) shower or empty bathtub, initial encounter; Y92.002 Bathroom of unspecified non-institutional (private) residence as the place of occurrence of the external cause; F10.90 Alcohol use, unspecified, uncomplicated | CPT/HCPCS: A0425; A0429 ==

== ENCOUNTER 2023-10-02 12:43 | Emergency (ER) | payer MEDICARE, OTHER ==
[2023-10-02 13:31] LABS: BASOPHILS # (AUTO) 0.1 10^3/uL (0.0-0.1); EOSINOPHILS # (AUTO) 0.1 10^3/uL (0.0-0.7); EOSINOPHILS % (AUTO) 0.7 %; HCT - HEMATOCRIT 43.8 % (37.0-47.0); HGB - HEMOGLOBIN 14.7 g/dL (12.0-16.0); LYMPHOCYTES # (AUTO) 2.3 10^3/uL (1.5-3.5); LYMPHOCYTES % (AUTO) 25.1 %; MEAN CORPUSCULAR HEMOGLOBIN 32.9 pg (27.0-31.0); MEAN CORPUSCULAR HGB CONC 33.6 g/dL (32.0-36.0); MEAN PLATELET VOLUME 8.3 fL (7.9-10.8); MONOCYTES # (AUTO) 0.6 10^3/uL (0.0-1.0); MONOCYTES % (AUTO) 6.6 %; NEUTROPHILS # (AUTO) 5.9 10^3/uL (1.5-6.6); NEUTROPHILS % (AUTO) 65.6 %; PLT - PLATELET COUNT 236 10^3/uL (130-450); RED BLOOD COUNT 4.47 10^6/uL (4.20-5.40); RED CELL DISTRIBUTION WIDTH 15.5 % (12.0-15.0)
[2023-10-02 13:44] LABS: ALBUMIN 4.3 g/dL (3.2-5.5); ALBUMIN/GLOBULIN RATIO 1.5 (1.0-2.2); BILIRUBIN,TOTAL 0.7 mg/dL (0.2-1.0); CALCIUM 9.9 mg/dL (8.5-10.3); CREATININE 0.6 mg/dL (0.6-1.3); ETOH - ETHANOL 294.8 mg/dL; MAGNESIUM 1.7 mg/dL (1.7-2.3); POTASSIUM 4.8 mmol/L (3.5-4.5); TOTAL PROTEIN 7.2 g/dL (6.4-8.9)
--- NOTE | 2023-10-02 14:41 | CT Report ---
PROCEDURE: CT lumbar spine without contrast INDICATIONS: syncope, GLF TECHNIQUE: Helical axial CT of the cervical spine was obtained without contrast and reformatted in m ultiple planes. Radiation dose reduction was achieved utilizing automated exposure control or adjus tment of mA and/or kV according to patient size. COMPARISON: None. FINDINGS: Bones: Degenerative disc space narrowing in the mid to lower lumbar spine with bone fusion across the C4-5 disc space may be surgical or ankylosis. Multilevel hypertrophic arthropathy present as well. G rade 1 anterior spinal listhesis at C3-4 and C7-T1. Moderate central stenosis C4-5 Soft tissues: Prevertebral soft tissues are normal in thickness. No paravertebral hematomas. No ap ical pneumothoraces. IMPRESSION: Degenerative disc disease and arthropathy without fracture or traumatic malalignment Reviewed by: Cristopher Vasquez MD on 10/02/2023 1:40 PM AKJOSE Approved by: Cristopher Vasquez MD on 10/02/2023 1:40 PM AKDT Station ID: [id number]
--- NOTE | 2023-10-02 14:42 | ED Physician Documentation ---
History of Present Illness - Stated complaint Stated Complaint: GLF - Chief complaint Chief Complaint: Trauma Ext - Additonal information Additional information: 83-year-old female with history of hypercholesterolemia, chronic right shoulder pain, GI bleed, osteoarthritis presents emergency department after syncopal episode. Patient plans with her daughter today who was at her house patient went to go take a shower and after her daughter realized that her mother had not returned yet she went to check on her and found patient passed out in the shower. Patient does endorse drinking vodka this morning she does not know how much she had drink but says she does not normally drink. She says she is also here at the hospital for imaging yesterday for an MRI of her right shoulder due to her chronic right shoulder pain. She is unsure if she hit her head or what entirely happened. Denies history of this ever happening before. PD PAST MEDICAL HISTORY - Past Medical History Cardiovascular: High cholesterol Respiratory: None Neuro: None Endocrine/Autoimmune: None GI: GI bleed, Ulcers : None HEENT: Chronic vision loss, Chronic hearing loss Psych: None Musculoskeletal: Osteoarthritis Derm: Other - Past Surgical History Past Surgical History: Yes General: Colonoscopy, EGD HEENT: Cataracts, Tonsil/Adenoidectomy - Present Medications Home Medications: Ambulatory Orders Medication Instructions Recorded Confirmed Omeprazole [PriLOSEC] 20 mg PO DAILY 10/19/12 10/02/23 Atorvastatin [Lipitor] 10 mg PO QPM 08/10/18 10/02/23 DULoxetine [Cymbalta] 40 mg PO DAILY 12/09/22 10/02/23 EPINEPHrine [Epinephrine] 1 each SUBQ ONCE PRN 12/10/22 10/02/23 cephALEXin [Keflex] 500 mg PO Q6H 5 Days #28 cap 10/02/23 - Allergies Allergies/Adverse Reactions: Allergies Allergy/AdvReac Type Severity Reaction Status Date / Time bee venom protein (honey bee) Allergy Anaphylaxis Verified 10/02/23 12:50 - Social History Does the pt smoke?: No Smoking Status: Never smoker Does the pt drink ETOH?: Yes Does the pt have substance abuse?: No Results - Vitals Vitals: Vital Signs - 24 hr 10/02/23 10/02/23 10/02/23 12:52 14:54 16:18 Heart Rate 91 95 100 Respiratory 20 16 16 Rate Blood Pressure 129/64 97/58 L 129/76 O2 Saturation 100 99 99 Oxygen O2 Source Room air - EKG (time done) 1338 EKG releavant findings:: EKG personally interpreted by author of this note. Relevant findings are: Rate: Rate (enter#) (93) Rhythm: NSR [place]: Normal Intervals: Normal [place] QRS: Normal Ischemia: Normal ST segments Computer interpretation: Agree with computer - Labs Labs: Laboratory Tests 10/02/23 10/02/23 10/02/23 13:25 13:25 13:40 WBC 9.0 RBC 4.47 Hgb 14.7 Hct 43.8 MCV 98.0 MCH 32.9 H MCHC 33.6 RDW 15.5 H Plt Count 236 MPV 8.3 Neut # (Auto) 5.9 Lymph # (Auto) 2.3 [place] # (Auto) 0.6 Eos # (Auto) 0.1 Baso # (Auto) 0.1 Absolute Nucleated RBC 0.00 Nucleated RBC % 0.0 Sodium 140 Potassium 4.8 H Chloride 101 Carbon Dioxide 28 Anion Gap 11.0 BUN 22 H Creatinine 0.6 Estimated GFR (MDRD) 95 Glucose 105 H Calcium 9.9 Magnesium 1.7 Total Bilirubin 0.7 AST 28 ALT 25 Alkaline Phosphatase 69 Total Protein 7.2 Albumin 4.3 Globulin 2.9 Albumin/Globulin Ratio 1.5 Lipase 22 Urine Color YELLOW Urine Clarity SL. CLOUDY Urine pH 7.0 Ur Specific [place] 1.020 Urine Protein 30 H Urine Glucose (UA) NEGATIVE Urine Ketones NEGATIVE Urine Occult Blood LARGE H Urine Nitrite POSITIVE H Urine Bilirubin NEGATIVE Urine Urobilinogen 0.2 (NORMAL) Ur Leukocyte Esterase LARGE H Urine RBC 6-10 H Urine WBC >25 H Ur Squamous Epith Cells FEW Squamous Urine Bacteria Many H Ur Microscopic Review INDICATED Urine Culture Comments INDICATED Ethyl Alcohol 294.8 - Rads (name of study) CT head without Relevant Findings:: Final report received, EMP independent interpretation of test, Other (No intracranial abnormalities or findings of the head) Cervical spine without Relevant Findings:: Final report received, EMP independent interpretation of test, Other (Degenerative disc disease without fracture or subluxation) PD Medical Decision Making - ED course ED course: 83-year-old female presents emergency department for syncopal episode. Patient's daughter eventually came to the emergency department to check on her and give more of the story she says that she found patient unconscious in the bathroom she eventually woke up after the daughter was yelling at her to wake up . Patient's daughter reports that her mother does have alcohol dependence and that she is not surprised to know that her EtOH level is elevated at 294. Labs are complete to Look into further possibilities of syncopal episode no anemia no white count no significant electrolyte abnormalities aside from mild hyperkalemia 4.8 BUN slightly elevated 22. Urinalysis reveals leukocytes and nitrates we will go ahead and treat for urinary tract infection. Head CT and neck CT were unremarkable. EKG also unremarkable. At this point, believe the patient is safe for discharge she is strongly encouraged to cut back on her drinking to follow-up with her primary care provider for alcohol withdrawal. Strict ER return precautions she denies syncopal episodes while she was here able to ambulate without difficulty all questions answered to patient and patient's family. Departure - Departure Disposition: 01 Home, Self Care Clinical Impression: Syncope, UTI (urinary tract infection) Alcohol dependence Qualifiers: Substance use status: with intoxication Condition: Stable Instructions: Withdrawal Alcohol What Expect, ED Withdrawal Alcohol Prescriptions: cephALEXin [Keflex] 500 mg PO Q6H 5 Days #28 cap Comments: Thank you for trusting us with your care. Is very important that you work on cutting back on alcohol significantly. If needed this is why you had the syncopal episode today. Please follow-up with your primary care provider to go over the MRI results I have printed them and attach them to your discharge paperwork. Please come back to the emergency department you are starting to notice any symptoms again from your syncopal episode and discussed with your primary care provider different ways to help with alcohol cravings such as s omething like naltrexone. Wishing you a speedy recovery. I have sent a prescription of Keflex to your preferred pharmacy you do have a urinary tract infection you will take this twice a day for the next 5 days. Forms: PCP List Discharge Date/Time: 10/02/23 16:20
--- NOTE | 2023-10-02 14:45 | CT Report ---
PROCEDURE: CT brain without contrast INDICATIONS: syncope, GLF TECHNIQUE: Helical axial CT of the brain was obtained without contrast and reformatted in multiple p lanes. Radiation dose reduction was achieved using automated exposure control or adjustment of mA and /or kV according to patient size. COMPARISON: 05/15/2022 FINDINGS: CSF spaces: Ventricles are appropriate in size and position. No hydrocephalus. Basal cisterns unre markable. Brain: No midline shift. No intracranial masses or hemorrhage. [place]cd[place]-white matter interface is norm al. Moderate atrophy and multifocal white matter chronic ischemic change noted. Atherosclerotic vasc ular calcification noted in the cavernous segments of both internal carotid arteries. Skull and face: Calvarium and skull base are unremarkable without suspicious lesion. Sinuses: Visualized sinuses and mastoids are clear. IMPRESSION: Unremarkable CT of the brain Reviewed by: Cristopher Vasquez MD on 10/02/2023 1:43 PM ARIA Approved by: Cristopher Vasquez MD on 10/02/2023 1:43 PM AKDT Station ID: [id number]
[2023-10-02] MEDS: SODIUM CHLORIDE 0.9% 1,000 ML IV ONE (14:52)
[2023-10-02 14:54] LABS: BILIRUBIN,URINE NEGATIVE (NEGATIVE); GLUCOSE, URINE (UA) NEGATIVE (NEGATIVE); KETONES,URINE (UA) NEGATIVE (NEGATIVE); LEUKOCYTE ESTERASE, URINE LARGE (NEGATIVE); NITRITE,URINE POSITIVE (NEGATIVE); OCCULT BLOOD,URINE LARGE (NEGATIVE); PROTEIN,URINE 30 mg/dL (NEGATIVE); UROBILINOGEN,URINE 0.2 (NORMAL) E.U./dL (NORMAL)
[2023-10-02 14:56] LABS: CLARITY,URINE SL. CLOUDY (CLEAR)
[2023-10-02 14:59] VITALS: O2SAT 99
[2023-10-02 15:00] LABS: WBC,URINE >25 /HPF (0-5)
[2023-10-02 15:01] LABS: BACTERIA,URINE Many /HPF (None Seen); SQUAMOUS EPITHELIAL CELL,UR FEW Squamous (<= Few)
[2023-10-02] MEDS: cephALEXin 250 MG CAPSULE PO STA (15:54)
[2023-10-02 16:25] VITALS: BP 129/76
--- NOTE | 2023-10-04 13:22 | ED Physician Documentation ---
ED Addendum - Addendum Addendum: 10/04/23 13:22 Urine culture reviewed. She is on cephalexin which should be active against the Proteus isolate in her urine.
== END 2023-10-02 16:20 | disposition home or self-care (01) ==
LOC: EDUNIT# → ED 12:43
DX: R55 Syncope and collapse (principal); N39.0 Urinary tract infection, site not specified; Y90.8 Blood alcohol level of 240 mg/100 ml or more; F10.229 Alcohol dependence with intoxication, unspecified
CPT/HCPCS: 36415; 70450; 72125; 80053; 81001; 83690; 83735; 85025; 87086; 93005; 99284; A9270; G0480; 81003; 82077; 87077; 87181

== ENCOUNTER 2023-12-23 09:31 | Outpatient (CLI) | payer MEDICARE, OTHER ==
--- NOTE | 2023-12-23 11:56 | XRAY Report ---
PROCEDURE: Knee 4+V RT INDICATIONS: RIGHT TOTAL KNEE ARTHROPLASTY TECHNIQUE: 4 views of the knee(s) were acquired. COMPARISON: Right knee radiograph on January 26, 2023. FINDINGS: Bones: No fractures or dislocations. Right total knee arthroplasty hardware with patellar resurfacin g is intact with no perihardware lucency to suggest hardware loosening. Previously described peripros thetic lucency adjacent to the medial aspect of the tibial component is less conspicuous. No suspicio us bony lesions. Soft tissues: Small knee joint effusion. No suspicious soft tissue calcifications or masses. IMPRESSION: 1.No acute bony abnormality. 2.Right total knee arthroplasty hardware is intact with no perihardware lucency to suggest hardware l oosening. Previously described periprosthetic lucency adjacent to the medial aspect of the tibial com ponent is less conspicuous. Attention on follow-up. Reviewed by: Eric Ronquillo MD on 12/23/2023 11:54 AM PDT Approved by: Eric Ronquillo MD on 12/23/2023 11:54 AM PDT Station ID: [id number]
== END 2023-12-23 09:32 | disposition home or self-care (01) ==
LOC: DI 09:31
PROVIDERS: ATTEND Orthopaedic Surgery
DX: Z96.651 Presence of right artificial knee joint (principal)